=== PATIENT | female | born 1995 | race Caucasian/White ===

== ENCOUNTER 2025-06-24 18:03 | Emergency (ER) | payer SELFPAY ==
[~2025-06-24] VITALS: Ht 154.9 cm; Wt 72.4 kg
[~2025-06-24 18:03] MED LIST: ACET-897 PO
[2025-06-24] MEDS ORDERED: OXYM15SP2 (19:32)
[2025-06-24] MEDS ORDERED: VENTAER INH (19:32)
[2025-06-24] MEDS ORDERED: BENZ200C70 PO (19:32)
[2025-06-24 19:39] VITALS: BP 130/98; TEMP 99.3; O2SAT 97
== END 2025-06-24 19:43 | disposition home or self-care (01) ==
LOC: M ED 18:03
DX: R06.02 Shortness of breath (principal); B34.9 Viral infection, unspecified; F17.210 Nicotine dependence, cigarettes, uncomplicated; Z88.1 Allergy status to other antibiotic agents; Z88.8 Allergy status to other drugs, medicaments and biological substances; Z91.09 Other allergy status, other than to drugs and biological substances; Z91.0110 Allergy to milk products, unspecified; Z79.1 Long term (current) use of non-steroidal anti-inflammatories (NSAID); Z79.51 Long term (current) use of inhaled steroids; Z79.899 Other long term (current) drug therapy